=== PATIENT | female | born 1985 | race Caucasian/White ===

== ENCOUNTER 2017-07-09 19:57 | Emergency (ER) | payer BC ==
[~2017-07-09] VITALS: Ht 165.1 cm; Wt 106.6 kg
[~2017-07-09 19:57] MED LIST: PEDICHW50 PO
--- NOTE | 2017-07-09 20:39 | EMERGENCY ROOM VISIT NOTE ---
History First contact with patient: 20:26 Chief Complaint: RESPIRATORY PROBLEMS Stated Complaint: TROUBLE BREATHING, SORE THROAT, COUGH Nursing Triage Summary: Pt reports she was placed on tamiflu and has been using it for 1.5 days. Reports today she has severe cough and "respiratory symptoms". Feeling SOB and has " lost my voice". Also reporting sore throat. Robatussin at 1830. No tylenol for motrin in last 6 hours. History of Present Illness The patient is a 32 year old female who presents to the Emergency Room with complaints of cough and shortness of breath today. The patient states she began feeling sick with respiratory symptoms on Saturday night, she went to urgent care yesterday and was started on Tamiflu for suspected influenza, she has been taking this as prescribed. She states today that her cough was much worse, she was feeling short of breath with chest tightness when she coughs, and also having a hoarse voice and sore throat today. She states yesterday that she was tested for strep throat, which was negative. She states that she was also placed on prednisone and Tessalon Perles which she has been taking but without improvement. She has tried [id number] Robitussin for her cough and this also has not helped. She has not tried any Tylenol or Motrin for her symptoms. She reports a history of "asthmatic bronchitis" in the past, but denies a history of asthma and does not use any inhalers routinely. She denies any headaches, vision changes, neck pain or stiffness, chest pain, abdominal pain, back pain, nausea or vomiting, diarrhea, bloody or black stools, urinary symptoms, or rash. She states probable sick contacts with similar symptoms recently. Review of Systems A complete 10 point review of systems was reviewed with the patient with pertinent positives and negatives as per history of present illness. All else were negative. Past Medical/Surgical History No significant past medical history Social History Smoking Status: Never Smoker Alcohol Use: none Drug Use: none Current/Historical Medications Scheduled Prednisone (Prednisone), Unknown Dose PO DIRECTED Scheduled PRN Benzonatate (Tessalon Perles), 100 MG PO TID PRN for Cough Oseltamivir Phosphate (Tamiflu), 75 MG PO BID PRN for DIRECTED Allergies No known allergies Physical Exam Vital Signs Date Time Temp Pulse Resp B/P (MAP) Pulse Ox O2 Delivery O2 Flow Rate FiO2 07/09/17 22:05 37.1 109 16 146/88 94 Room Air 07/09/17 21:16 98 07/09/17 21:09 100 Room Air 07/09/17 21:09 100 Room Air 07/09/17 20:18 100 Room Air 07/09/17 20:13 37.7 109 20 145/91 97 Room Air Physical Exam CONSTITUTIONAL: Pleasant and cooperative. No acute distress. Speaking in full sentences. Mildly dehydrated, but otherwise well appearing and well nourished. HEENT: Normocephalic, atraumatic. PERRL, EOMI. TMs normal bilaterally. Pharynx mildly erythematous, no edema, no exudates. No uvular swelling or deviation, no trismus. Tacky mucous membranes. NECK: Supple, full active range of motion without discomfort. No cervical adenopathy. RESPIRATORY: Diminished bilaterally in the bases with few expiratory wheezes, no crackles, rhonchi or stridor. No accessory muscle use. Equal expansion bilaterally. CARDIOVASCULAR: Tachycardic. Regular rhythm with no murmurs, rubs or gallops. Normal peripheral perfusion. No edema. GASTROINTESTINAL: Soft, nontender, nondistended. No palpable masses or HSM. Bowel sounds present in all quadrants. MUSCULOSKELETAL: Full range of motion of all joints without discomfort. INTEGUMENTARY: No rash or other significant dermatologic conditions noted. NEUROLOGIC: Alert and oriented X 4 with normal affect. Cranial nerves II-XII grossly intact. No focal neurologic deficits noted. Normal strength and sensation in all 4 extremities. Normal speech. Normal gait observed. Medical Decision & Procedures ER Provider Diagnostic Interpretation: TWO VIEW CHEST CLINICAL HISTORY: Dyspnea. FINDINGS: PA and lateral chest radiographs are obtained. No prior studies are available for comparison at the time of dictation. The cardiomediastinal silhouette is unremarkable. The lungs and pleural spaces are clear. There is no pneumothorax. The bony thorax appears intact. IMPRESSION: No active disease in the chest. Laboratory Results 07/09/17 21:46 Red Blood Count 4.60, Mean Corpuscular Volume 82.6, Mean Corpuscular Hemoglobin 27.8, Mean Corpuscular Hemoglobin Concent 33.7, Mean Platelet Volume 8.9, Neutrophils (%) (Auto) 84.9, Lymphocytes (%) (Auto) 10.3, Monocytes (%) (Auto) 4.1, Eosinophils (%) (Auto) 0.4, Basophils (%) (Auto) 0.2, Neutrophils # (Auto) 7.26, Lymphocytes # (Auto) 0.88, Monocytes # (Auto) 0.35, Eosinophils # (Auto) 0.03, Basophils # (Auto) 0.02 07/09/17 21:46 Test 07/09/17 21:46 07/09/17 22:17 White Blood Count 8.55 K/uL (4.8-10.8) Red Blood Count 4.60 M/uL (4.2-5.4) Hemoglobin 12.8 g/dL (12.0-16.0) Hematocrit 38.0 % (37-47) Mean Corpuscular Volume 82.6 fL (80-100) Mean Corpuscular Hemoglobin 27.8 pg (25-34) Mean Corpuscular Hemoglobin Concent 33.7 g/dl (32-36) Platelet Count 166 K/uL (130-400) Mean Platelet Volume 8.9 fL (7.4-10.4) Neutrophils (%) (Auto) 84.9 % Lymphocytes (%) (Auto) 10.3 % Monocytes (%) (Auto) 4.1 % Eosinophils (%) (Auto) 0.4 % Basophils (%) (Auto) 0.2 % Neutrophils # (Auto) 7.26 K/uL (1.4-6.5) Lymphocytes # (Auto) 0.88 K/uL (1.2-3.4) Monocytes # (Auto) 0.35 K/uL (0.11-0.59) Eosinophils # (Auto) 0.03 K/uL (0-0.5) Basophils # (Auto) 0.02 K/uL (0-0.2) RDW Standard Deviation 44.5 fL (36.4-46.3) RDW Coefficient of Variation 14.8 % (11.5-14.5) Immature Granulocyte % (Auto) 0.1 % Immature Granulocyte # (Auto) 0.01 K/uL (0.00-0.02) Anion Gap 9.0 mmol/L (3-11) Est Creatinine Clear Calc Drug Dose 121.7 ml/min Estimated GFR () 113.2 Estimated GFR (Non- 97.7 BUN/Creatinine Ratio 7.4 (10-20) Calcium Level 8.7 mg/dl (8.5-10.1) Total Bilirubin 1.0 mg/dl (0.2-1) Aspartate Amino Transf (AST/SGOT) 25 U/L (15-37) Alanine Aminotransferase (ALT/SGPT) 34 U/L (12-78) Alkaline Phosphatase 46 U/L (45-117) Total Protein 8.1 gm/dl (6.4-8.2) Albumin 3.9 gm/dl (3.4-5.0) Globulin 4.2 gm/dl (2.5-4.0) Albumin/Globulin Ratio 0.9 (0.9-2) Urine Color YELLOW Urine Appearance CLEAR (CLEAR) Urine pH 5.5 (4.5-7.5) Urine Specific [place] 1.014 (1.000-1.030) Urine Protein NEG (NEG) Urine Glucose (UA) NEG (NEG) Urine Ketones NEG (NEG) Urine Occult Blood 1+ (NEG) Urine Nitrite NEG (NEG) Urine Bilirubin NEG (NEG) Urine Urobilinogen NEG (NEG) Urine Leukocyte Esterase NEG (NEG) Urine WBC (Auto) 1-5 /hpf (0-5) Urine RBC (Auto) 0-4 /hpf (0-4) Urine Hyaline Casts (Auto) 0 /lpf (0-5) Urine Epithelial Cells (Auto) 5-10 /lpf (0-5) Urine Bacteria (Auto) NEG (NEG) Urine Test NEG (NEG) Medications Administered Medications (Trade) Dose Ordered Sig/Ryan Route Start Time Stop Time Status Last Admin Dose Admin Acetaminophen (Tylenol Tab) 1,000 mg NOW STAT PO 07/09/17 20:50 07/09/17 20:52 DC 07/09/17 20:50 1,000 MG Albuterol/ Ipratropium (Duoneb) 3 ml NOW STAT INH 07/09/17 20:50 07/09/17 20:52 DC 07/09/17 20:50 3 ML Sodium Chloride 1,000 ml @ 999 mls/hr Q1H1M STAT IV 07/09/17 20:50 07/09/17 21:50 DC 07/09/17 20:50 999 MLS/HR ECG Indication: SOB/dyspnea, tachycardia Rate (beats per minute): 101 Rhythm: sinus tachycardia Findings: no acute ischemic change, no ectopy Comparison ECG Date: no prior available Medical Decision CC: Patient presenting with complaint of cough, sore throat, shortness of breath Interpretation of Labs: No leukocytosis, no anemia, mild hypokalemia, no other significantly delayed abnormalities, normal renal function, normal liver enzymes. UA negative, urine is POSITIVE. Beta hCG Quant pending. Differential Diagnosis: Includes, but not limited to viral URI, bronchitis, pneumonia, influenza, asthma exacerbation, dehydration, PE, among others. Medication Reconciliation: I attest that I have personally reviewed the patient' s current medication list. Initial vital signs review: I reviewed the patient's vital signs and interpret them as follows: T: Afebrile; BP: Hypertensive; HR: Tachycardic; RR: Within normal limits; Pulse Ox: Within normal limits on room air. Blood pressure screening: The patient was found to have an elevated blood pressure and was referred to their primary doctor for recheck and further treatment. Summary: Patient was evaluated at bedside, history and physical exam performed. Patient is alert and oriented, no acute distress, resting, in the stretcher. Lung sounds are diminished in the bilateral bases and a few expiratory wheezes, no rhonchi or crackles. Orders were placed at bedside for labs, UA and urine , IV fluid for hydration, Tylenol for body aches and low-grade fever, chest x-ray to evaluate for pneumonia. Patient discussed with Dr. Du, who agrees with my assessment and plan. Labs reviewed as above, notable for mild hypokalemia, this was replaced orally with 40 mEq of potassium chloride. EKG shows sinus tachycardia with no acute ischemic changes by my interpretation. Chest x-ray unremarkable. Nursing staff notified me that the patient's urine test is positive. I discussed this with the patient, she now informs me that she had a surgical 3 days ago, prior to her symptoms starting. She states she was approximately 8 weeks gestation at the time of the . Given the patient's shortness of breath, persistent tachycardia and recent /surgery, I feel she is at increased risk for PE. CT of the chest was ordered to evaluate for this. Patient reassessed multiple times throughout ED stay, she does report some improvement after the DuoNeb treatment, stating that she has been able to cough more up after using this. Will plan to provide her with albuterol inhaler for home use. Patient was signed out to Ricki Hilliard PA-C, at change of shift; awaiting chest CT results and beta hCG Quant level. Impression Primary Impression: Flu-like symptoms Additional Impression: Hypokalemia Departure Information Dispostion Still a Patient Condition GOOD Referrals No Doctor, Assigned (PCP) Patient Instructions My [facility] Problem Qualifiers
[2017-07-09] MEDS ORDERED: ALBUT/IPRATROP 3MG/0.5MG NEB 3 ML VIAL INH STA (20:50)
[2017-07-09] MEDS ORDERED: SODIUM CHLORIDE 0.9% 1000ML 1,000 ML IV STA (20:50)
[2017-07-09] MEDS ORDERED: ACETAMINOPHEN 500 MG TAB PO STA (20:50)
[2017-07-09 21:09] VITALS: O2SAT 100; Ht 165.1 cm; Wt 106.6 kg
[2017-07-09] MEDS ORDERED: OSEL75CA23 PO (21:55)
[2017-07-09] MEDS ORDERED: PRED10PA3 PO (21:55)
[2017-07-09] MEDS ORDERED: BENZ100C84 PO (21:55)
[2017-07-09 22:04] LABS: BASO % 0.2 %; BASO ABS # 0.02 K/uL (0-0.2); EOS % 0.4 %; EOS ABS # 0.03 K/uL (0-0.5); HEMOGLOBIN 12.8 g/dL (12.0-16.0); IG# 0.01 K/uL (0.00-0.02); LYMPH % 10.3 %; LYMPH ABS # 0.88 K/uL (1.2-3.4); MEAN CELL VOLUME 82.6 fL (80-100); MEAN CORPUSCULAR HEMOGLOBIN 27.8 pg (25-34); MEAN CORPUSCULAR HGB CONC 33.7 g/dl (32-36); MEAN PLATELET VOLUME 8.9 fL (7.4-10.4); MONO % 4.1 %; MONO ABS # 0.35 K/uL (0.11-0.59); NEUT % 84.9 %; NEUT ABS # 7.26 K/uL (1.4-6.5); PLATELET COUNT 166 K/uL (130-400); RED CELL DISTRIBUTION WIDTH CV 14.8 % (11.5-14.5); RED CELL DISTRIBUTION WIDTH SD 44.5 fL (36.4-46.3); WHITE BLOOD COUNT 8.55 K/uL (4.8-10.8)
[2017-07-09 22:05] VITALS: TEMP 37.1
--- NOTE | 2017-07-09 22:11 | DIAGNOSTIC IMAGING REPORT ---
TWO VIEW CHEST CLINICAL HISTORY: Dyspnea. FINDINGS: PA and lateral chest radiographs are obtained. No prior studies are available for comparison at the time of dictation. The cardiomediastinal silhouette is unremarkable. The lungs and pleural spaces are clear. There is no pneumothorax. The bony thorax appears intact. IMPRESSION: No active disease in the chest. Electronically signed by: Beto Bran M.D. 07/09/2017 10:10 PM Dictated Date/Time: 07/09/2017 10:09 PM
[2017-07-09 22:14] LABS: ALBUMIN 3.9 gm/dl (3.4-5.0); CALCIUM 8.7 mg/dl (8.5-10.1); CREATININE 0.79 mg/dl (0.60-1.20); POTASSIUM 3.2 mmol/L (3.5-5.1)
[2017-07-09 22:17] LABS: TOTAL PROTEIN 8.1 gm/dl (6.4-8.2)
[2017-07-09] MEDS ORDERED: ALBUTEROL HFA 8 GM INHALER INH ONE (22:45)
[2017-07-09] MEDS ORDERED: OPTIRAY 320 IV PRN (23:00)
[2017-07-09] MEDS ORDERED: POTASSIUM CHLORIDE 10 MEQ TABCR PO STA (23:05)
--- NOTE | 2017-07-10 00:26 | EMERGENCY ROOM VISIT NOTE ---
ED Visit Note First contact with patient: 23:34 Patient care was assumed from Shannan Bello CRP, at the time of shift change. Please see Ace's dictation for full history of present illness and emergency room course outside of this dictation. In short, the patient has had difficulty breathing for the past several days. CT angiogram was pending at the time of shift change and results are as below: Preliminary Findings Only See Final Report For Complete Findings CTA CHEST: No central pulmonary embolus. No effusion or consolidation. On reevaluation the patient reports some very minimal wheezing, which was heard on auscultation but she overall reports improvement. She is comfortable with discharge home and was given discharge information as below. Current/Historical Medications Scheduled Prednisone (Prednisone), Unknown Dose PO DIRECTED Scheduled PRN Benzonatate (Tessalon Perles), 100 MG PO TID PRN for Cough Oseltamivir Phosphate (Tamiflu), 75 MG PO BID PRN for DIRECTED Allergies Coded Allergies: No Known Allergies (Unverified , 07/09/17) Vital Signs Date Time Temp Pulse Resp B/P (MAP) Pulse Ox O2 Delivery O2 Flow Rate FiO2 07/09/17 23:37 105 20 163/85 95 Room Air 07/09/17 22:05 37.1 109 16 146/88 94 Room Air 07/09/17 21:16 98 07/09/17 21:09 100 Room Air 07/09/17 21:09 100 Room Air 07/09/17 20:18 100 Room Air 07/09/17 20:13 37.7 109 20 145/91 97 Room Air Laboratory Results 07/09/17 21:46 Red Blood Count 4.60, Mean Corpuscular Volume 82.6, Mean Corpuscular Hemoglobin 27.8, Mean Corpuscular Hemoglobin Concent 33.7, Mean Platelet Volume 8.9, Neutrophils (%) (Auto) 84.9, Lymphocytes (%) (Auto) 10.3, Monocytes (%) (Auto) 4.1, Eosinophils (%) (Auto) 0.4, Basophils (%) (Auto) 0.2, Neutrophils # (Auto) 7.26, Lymphocytes # (Auto) 0.88, Monocytes # (Auto) 0.35, Eosinophils # (Auto) 0.03, Basophils # (Auto) 0.02 07/09/17 21:46 Test 07/09/17 21:46 07/09/17 22:17 White Blood Count 8.55 K/uL (4.8-10.8) Red Blood Count 4.60 M/uL (4.2-5.4) Hemoglobin 12.8 g/dL (12.0-16.0) Hematocrit 38.0 % (37-47) Mean Corpuscular Volume 82.6 fL (80-100) Mean Corpuscular Hemoglobin 27.8 pg (25-34) Mean Corpuscular Hemoglobin Concent 33.7 g/dl (32-36) Platelet Count 166 K/uL (130-400) Mean Platelet Volume 8.9 fL (7.4-10.4) Neutrophils (%) (Auto) 84.9 % Lymphocytes (%) (Auto) 10.3 % Monocytes (%) (Auto) 4.1 % Eosinophils (%) (Auto) 0.4 % Basophils (%) (Auto) 0.2 % Neutrophils # (Auto) 7.26 K/uL (1.4-6.5) Lymphocytes # (Auto) 0.88 K/uL (1.2-3.4) Monocytes # (Auto) 0.35 K/uL (0.11-0.59) Eosinophils # (Auto) 0.03 K/uL (0-0.5) Basophils # (Auto) 0.02 K/uL (0-0.2) RDW Standard Deviation 44.5 fL (36.4-46.3) RDW Coefficient of Variation 14.8 % (11.5-14.5) Immature Granulocyte % (Auto) 0.1 % Immature Granulocyte # (Auto) 0.01 K/uL (0.00-0.02) Anion Gap 9.0 mmol/L (3-11) Est Creatinine Clear Calc Drug Dose 121.7 ml/min Estimated GFR () 113.2 Estimated GFR (Non- 97.7 BUN/Creatinine Ratio 7.4 (10-20) Calcium Level 8.7 mg/dl (8.5-10.1) Total Bilirubin 1.0 mg/dl (0.2-1) Aspartate Amino Transf (AST/SGOT) 25 U/L (15-37) Alanine Aminotransferase (ALT/SGPT) 34 U/L (12-78) Alkaline Phosphatase 46 U/L (45-117) Total Protein 8.1 gm/dl (6.4-8.2) Albumin 3.9 gm/dl (3.4-5.0) Globulin 4.2 gm/dl (2.5-4.0) Albumin/Globulin Ratio 0.9 (0.9-2) Human Chorionic Gonadotropin, Quant 2286 mIU/mL Urine Color YELLOW Urine Appearance CLEAR (CLEAR) Urine pH 5.5 (4.5-7.5) Urine Specific [place] 1.014 (1.000-1.030) Urine Protein NEG (NEG) Urine Glucose (UA) NEG (NEG) Urine Ketones NEG (NEG) Urine Occult Blood 1+ (NEG) Urine Nitrite NEG (NEG) Urine Bilirubin NEG (NEG) Urine Urobilinogen NEG (NEG) Urine Leukocyte Esterase NEG (NEG) Urine WBC (Auto) 1-5 /hpf (0-5) Urine RBC (Auto) 0-4 /hpf (0-4) Urine Hyaline Casts (Auto) 0 /lpf (0-5) Urine Epithelial Cells (Auto) 5-10 /lpf (0-5) Urine Bacteria (Auto) NEG (NEG) Urine Test NEG (NEG) Medications Administered Medications (Trade) Dose Ordered Sig/Ryan Route Start Time Stop Time Status Last Admin Dose Admin Acetaminophen (Tylenol Tab) 1,000 mg NOW STAT PO 07/09/17 20:50 07/09/17 20:52 DC 07/09/17 20:50 1,000 MG Albuterol/ Ipratropium (Duoneb) 3 ml NOW STAT INH 07/09/17 20:50 07/09/17 20:52 DC 07/09/17 20:50 3 ML Sodium Chloride 1,000 ml @ 999 mls/hr Q1H1M STAT IV 07/09/17 20:50 07/09/17 21:50 DC 07/09/17 20:50 999 MLS/HR Albuterol (Ventolin Hfa Inhaler) 2 puffs NOW ONCE INH 07/09/17 22:45 07/09/17 22:46 DC 07/09/17 23:39 2 PUFFS Potassium Chloride (Klor-Con M10) 40 meq NOW STAT PO 07/09/17 23:05 07/09/17 23:06 DC 07/09/17 23:39 40 MEQ Departure Information Impression Primary Impression: Flu-like symptoms Additional Impression: Hypokalemia Dispostion Still a Patient Condition GOOD Referrals Bennie Rajput M.D. (PCP) Forms WORK / SCHOOL INSTRUCTIONS, HOME CARE DOCUMENTATION FORM, IMPORTANT VISIT INFORMATION Patient Instructions My [facility] Additional Instructions You have been evaluated in the emergency department for your cough and shortness of breath. There is no evidence of pneumonia on your chest x-ray. It is suspected that you have influenza, which is why you were placed on Tamiflu. Influenza is a type of virus that should run its course and symptoms should be improved after 7-10 days, but may last up to 14 days. Continue your Tamiflu and prednisone as prescribed. Use the albuterol inhaler with the spacer, 2 puffs every 4 hours as needed for cough, chest tightness, and wheezing. You should use this before bed to help improve your cough to help you sleep better. You may take [id number] Robitussin, Delsym, or Mucinex as needed for cough and congestion. For fevers and body aches/headaches, you may take the following over-the- counter medications: - Extra strength Tylenol (500 mg) 1-2 tablets every 6-8 hours as needed. Do not take more than 6 tablets (3000 mg) in 24 hours. - Ibuprofen (200 mg) 3 tablets every 6-8 hours as needed. Do not take more than 2400 mg in 24 hours. - For best results, you may alternate between the Tylenol and the ibuprofen every 3-4 hours for severe body aches and fevers. It is ESSENTIAL that you maintain adequate hydration with oral fluids! Some suggestions include: - Water is the IDEAL replacement for lost fluids. You should initially sip at the water to help facilitate increased intestinal absorption rate and to decrease the possibility of nausea/vomiting. - Carbohydrate/Electrolyte-Containing Drinks (i.e. Gatorade, Powerade, Pedialyte). All of these are good choices, but it is important to remember that all of these drinks contain a high concentration of sugar. - Popsicles, ice chips, and fruit juices are all other options. - My FAVORITE dehydration remedy is to mix a 1:1 solution of bottled Gatorade with bottled water. This dilution allows for a palatable flavor with added benefit of a reduction in the amount of sugar consumption. As with all Emergency Department visits, you should follow-up with your Primary Care Provider in 2-3 days for reevaluation. You also need to follow-up with your primary care provider or [facility] in the next 2-3 days to have repeat blood work: Beta hCG quantitative level. Please return to the emergency department for any worsening symptoms, including difficulty breathing, chest pain, coughing up blood, severe dizziness or passing out, confusion, severe headache, or any other concerns. Problem Qualifiers
[2017-07-10 00:38] VITALS: BP 134/68; PULSE 95; O2SAT 98
--- NOTE | 2017-07-10 07:07 | DIAGNOSTIC IMAGING REPORT ---
CT ANGIOGRAPHY OF THE CHEST, PULMONARY EMBOLUS PROTOCOL CLINICAL HISTORY: Shortness of breath. Recent surgical . COMPARISON STUDY: Chest radiograph July 09, 2017. TECHNIQUE: Following IV administration of 94 mL of Optiray-320, helical axial images of the chest were obtained utilizing the pulmonary embolus protocol. Maximal intensity projections and sagittal and coronal reformats were viewed on an independent 3D workstation. IV contrast was administered without complication. A dose lowering technique was utilized adhering to the principles of ALARA. CT DOSE: 607.70 mGy.cm FINDINGS: No central or lobar pulmonary embolus is identified. The segmental and subsegmental pulmonary arteries are suboptimally assessed due to respiratory motion. Size of the heart is normal. There is no pericardial effusion. There is no thoracic aortic dissection. Central airways are patent. There is no consolidation to suggest pneumonia. No pneumothorax or pleural effusion is noted. A 1.6 cm nodule within the superior left breast contains fat. There is suspected fatty infiltration of the liver. There is mild splenomegaly. IMPRESSION: 1. No central or lobar pulmonary embolus. Segmental and subsegmental pulmonary arteries suboptimally assessed due to suboptimal opacification and respiratory motion artifact. 2. No acute intrathoracic findings. 3. Mild splenomegaly. 4. Probable fatty infiltration of the liver. 5. 1.6 cm superior left breast nodule which contains. This contains a small amount of fat and therefore may reflect a hamartoma. However, nonemergent diagnostic mammogram is recommended for further evaluation. Electronically signed by: Kendall Swanson M.D. 07/10/2017 7:06 AM Dictated Date/Time: 07/10/2017 6:51 AM
== END 2017-07-10 00:41 | disposition still patient (30) ==
LOC: C.EDB 19:58 → C.EDC 07-10 00:41
DX: R05 Cough (principal); J02.9 Acute pharyngitis, unspecified; E87.6 Hypokalemia